=== PATIENT | male | born 1965 ===

== ENCOUNTER → 2018-03-27 11:05 | Outpatient (CLI) | payer OTHER, SELFPAY | PROVIDERS: Visit Provider Surgery | DX: K43.9 Ventral hernia without obstruction or gangrene (principal) | CPT/HCPCS: 93005; 99214 ==

== ENCOUNTER 2018-04-22 06:30 | Day surgery (SDC) | payer OTHER, SELFPAY ==
[2018-04-22] VITALS (9 sets, daily range): BP systolic 113–149; BP diastolic 68–95; PULSE 58–80; RESP 16–23; TEMP 36.1–37.2; O2SAT 91–98; BMI 34.9
[2018-04-22] MEDS: LACTATED RINGERS 1,000 ML 100 ML IV ×2 (07:27→09:09)
--- NOTE | 2018-04-22 07:28 | PM.PREOP ---
Pre-operative Note Interval Note Pre-op Check: History & Physical Reviewed by Physician and Exam Performed
[2018-04-22] MEDS: LACTATED RINGERS 1,000 ML 42 ML IV (07:45)
[2018-04-22] MEDS: CEFAZOLIN 2 GM/100 ML FROZ.PIGGY IV (07:57)
--- NOTE | 2018-04-22 08:19 | SUR.OPER ---
Supine on padded OR bed, head on pillow, arms secured on padded arm boards at <90 degrees abduction, legs uncrossed, safety belt at thigh, tape over blanket over lower legs.
[2018-04-22] MEDS: LIDOCAINE 1% W/EPI INJ 20 ML INJ (08:35)
[2018-04-22] MEDS: BUPIVACAINE 0.5% (PF) 30 ML VIAL INJ (08:36)
[2018-04-22] MEDS: SODIUM CHLORIDE IRRIG SOLUTION 250 ML, CEFAZOLIN VIAL 1 GM IRR (08:38)
[2018-04-22] MEDS: fentaNYL 100 MCG/2 ML INJ 50 MCG IV (09:25)
--- NOTE | 2018-04-22 09:25 | PM.OP.1 ---
Operative Date/Time/Diagnoses - Date of procedure: 04/22/18 Time of procedure: 09:25 Pre-op diagnosis: Symptomatic ventral hernia Post-op diagnosis: same Procedure & Clinicians Procedure: Open ventral hernia repair with mesh Same procedure as scheduled: Yes Indications: 52-year-old obese male who presented with acute onset of abdominal wall pain just above the umbilicus after strenuous activity. Examination and evaluation were consistent with hernia. Repair was recommended. Surgeon: Ray Goodson Click Yes if Unassisted: Yes Anesthesia Type: General Operative Notes Findings: 1. Supraumbilical midline ventral hernia containing incarcerated omentum 2. Entire fascial defect at the hernia measured approximately 2 x 2 cm in greatest dimension 3. No evidence of satellite hernias by palpation through the hernia defect along the peritoneal surface Closure Type: primary Specimen(s): none sent Implants & Drains: 1.7 in x 1.7 in circular dual sided CQur mesh Applied: implant(s) (Mesh as above) Estimated Blood Loss (mL): 10 Blood products transfused: none Procedure in detail: After obtaining informed consent the patient brought to the operating room placed supine on the table. After satisfactory induction of anesthesia the abdomen was prepped and draped in usual sterile fashion. A SCOAP time-out was performed per standard protocol. A 1 :1 mixture 1% lidocaine with 1 100,000 epinephrine and 0.25% plain Marcaine was injected in the skin and subcutaneous tissue at the superior aspect of the umbilicus for postoperative analgesia. Vertical midline incision was created with a 10. Scalpel blade over the palpable hernia defect. Inferior aspect of the incision extended to just above the umbilicus. Bovie was used to achieve hemostasis and carried the dissection down to the subcutaneous tissue where the apex of the hernia sac was encountered. Retraction and exposure were achieved with a self-retaining cerebellar retractors well as [place] and [place] retractors. Meticulous sharp and blunt dissection was employed to liberate the hernia sac from surrounding adhesions at the level of the fascia. Hernia was then reduced in its entirety back into the abdominal cavity. Great care was taken to avoid injury to other abdominal organs such as small bowel. Hemostasis was verified. Mesh was brought onto the operative field and soaked in Ancef solution. Mesh was then secured deep to the fascia using interrupted 0 Tycron suture circumferentially. Wound was irrigated with copious amounts of sterile saline solution and hemostasis was verified. The mesh was noted to be in good position with excellent coverage of the defect. Subcutaneous tissue was reapproximated with interrupted 3 0 Vicryl suture. Skin was closed in a subcuticular running fashion with 4 0 Monocryl suture. Dermal adhesive was placed on the skin. Anesthesia was reversed and the patient extubated in the operating room. He was taken recovery in stable condition. Complications: none Condition: stable Disposition: PACU Plan for aftercare: 1. Discharge to home 2. Follow up in surgery Clinic in 2 weeks
[2018-04-22] MEDS: OXYCODONE/ACETAMINOPHEN 5/325 TABLET 1 TAB PO (10:10)
== END 2018-04-22 10:27 | disposition home or self-care (01) ==
PROVIDERS: Visit Provider Surgery
PROC: (CPT 49560; principal; 2018-04-22 07:45)
DX: K43.9 Ventral hernia without obstruction or gangrene (principal); E66.9 Obesity, unspecified; I10 Essential (primary) hypertension; K21.9 Gastro-esophageal reflux disease without esophagitis
CPT/HCPCS: 49560; 49568; C1781; J0330; J0690; J1100; J2405; J2704; J3010